=== PATIENT | female | born 1990 | race African-American/Black ===

== ENCOUNTER 2021-07-13 17:59 | Emergency (ER) | payer OTHER ==
[2021-07-13 19:13] LABS: #Eosinphils 0.3 10x3/uL (0.0-0.5); #Monocytes 0.5 10x3/uL (0.0-1.1); #Neutrophils 5.6 10x3/uL (1.5-8.4); %Basophils 0.3 % (0.0-2.0); %Eosinophils 3.5 % (0.0-6.0); %Lymphocytes 26.9 % (18.0-47.0); %Monocytes 5.8 % (0.0-10.0); %Neutrophils 63.3 % (40.0-75.0); Hemoglobin 10.9 g/dL (12.0-15.5); Mean Corpuscular HGB CONC 32.2 g/dL (32.0-36.0); Mean Corpuscular Hemoglobin 26.7 pg (27.0-33.0); Mean Corpuscular Volume 82.8 fl (81.6-98.3); Mean Platelet Volume 8.8 fl (7.4-10.4); Platelet Count 341 10x3/uL (150-450); RBC Distribution Width 18.5 % (11.5-14.5); Red Blood Cell (RBC) Count 4.08 10x6/uL (3.90-5.03); White Blood Cell (WBC) Count 8.8 10x3/uL (3.5-10.5)
[2021-07-13 19:28] LABS: Bilirubin Neg (Negative); Blood, Urine Negative (Negative); Clarity Clear (Clear); Glucose, Urine (Dipstick) Normal (Negative); Ketone, Urine Negative (Negative); Leukocyte 500 (Negative); Nitrite Negative (Negative); Protein, Urine (Dipstick) Negative (Neg-Trace); Urobilinogen Normal mg/dL (Less than 2)
[2021-07-13 19:28] LABS: ALT (SGPT) 7 U/L (8-55); AST (SGOT) 16 U/L (5-34); Albumin 3.9 g/dL (3.5-5.0); Alkaline Phosphatase 43 U/L (40-110); Anion Gap 13 mmol/L (10-20); BUN (Urea Nitrogen) 11 mg/dL (7.0-18.7); Bilirubin, Total 0.1 mg/dL (0.2-1.2); Calc. Creatinine Clearance 0 mL/min (70-130); Calcium 9.4 mg/dL (7.8-10.44); Carbon Dioxide 18 mmol/L (22-29); Chloride 105 mmol/L (98-107); Globulin 3.4 g/dL (2.4-3.5); Glucose 80 mg/dL (70-105); Potassium 3.7 mmol/L (3.5-5.1); Protein, Total 7.3 g/dL (6.0-8.3); Sodium 132 mmol/L (136-145)
[2021-07-13 19:50] LABS: Bacteria/HPF 1+ HPF (None Seen); RBC/HPF 0-3 HPF (0-3)
== END 2021-07-13 20:37 | disposition home or self-care (01) ==
LOC: CSHERS 17:59
DX: O23.42 Unspecified infection of urinary tract in pregnancy, second trimester (principal); N39.0 Urinary tract infection, site not specified; O99.332 Smoking (tobacco) complicating pregnancy, second trimester; F17.210 Nicotine dependence, cigarettes, uncomplicated; Z3A.15 15 weeks gestation of pregnancy
CPT/HCPCS: 36415; 80053; 81003; 81015; 85025; 99284

== ENCOUNTER 2021-08-11 12:23 | Outpatient (CLI) | payer OTHER | END 2021-08-11 12:24 | disposition home or self-care (01) | LOC: CSHULT 12:23 | PROVIDERS: ATTEND Family Medicine | DX: O09.892 Supervision of other high risk pregnancies, second trimester (principal); Z3A.19 19 weeks gestation of pregnancy | CPT/HCPCS: 76805 ==

== ENCOUNTER 2021-09-30 12:39 | Day surgery (SDC) | payer OTHER ==
[2021-09-30] MEDS ORDERED: hydrALAZINE 20 MG/ML VIAL SLOW IVP PRN (14:12)
[2021-09-30 14:34] VITALS: BMI 27.3
== END 2021-09-30 14:30 | disposition home or self-care (01) ==
LOC: CSHLD/OP 12:39
PROVIDERS: ATTEND Family Medicine
DX: O26.852 Spotting complicating pregnancy, second trimester (principal); O16.2 Unspecified maternal hypertension, second trimester; O09.212 Supervision of pregnancy with history of pre-term labor, second trimester; Z3A.26 26 weeks gestation of pregnancy; Z91.018 Allergy to other foods; Z79.899 Other long term (current) drug therapy
CPT/HCPCS: 87480; 87510; 87660

== ENCOUNTER 2021-11-22 19:16 | Inpatient (IN) | payer OTHER ==
[2021-11-22] MEDS ORDERED: Diphenoxylate HCl/Atropine Tablet PO PRN (20:03)
[2021-11-22] MEDS ORDERED: Carboprost 250 MCG/ML AMP IM PRN (20:03)
[2021-11-22] MEDS ORDERED: Acetaminophen 500 MG TAB PO PRN (20:03)
[2021-11-22] MEDS ORDERED: Ondansetron PF 4 MG/2 ML Vial IVP PRN (20:03)
[2021-11-22] MEDS ORDERED: Promethazine HCl 25 MG/ML VIAL IM PRN (20:03)
[2021-11-22] MEDS ORDERED: Lidocaine 1% (PF) 30 ML VIAL SC PRN (20:03)
[2021-11-22] MEDS ORDERED: Ibuprofen 800 MG TAB PO PRN (20:03)
[2021-11-22] MEDS ORDERED: Misoprostol 200 MCG TAB PR PRN (20:03)
[2021-11-22] MEDS ORDERED: hydrALAZINE 20 MG/ML VIAL SLOW IVP PRN (20:03)
[2021-11-22] MEDS ORDERED: Methylergonovine 0.2 MG/ML VIAL IM PRN (20:03)
[2021-11-22] MEDS ORDERED: HYDROcodone/Acetaminophen 5/325 mg Tablet PO PRN (20:03)
[2021-11-22] MEDS ORDERED: NS w/ Oxytocin 30 units 500 ML IV SCH (20:15)
[2021-11-22] MEDS ORDERED: Azithromycin 500 MG in Sodium Chloride 0.9% 250 ML 250 ML IVPB SCH (20:30)
[2021-11-22 20:43] LABS: Hemoglobin 11.2 g/dL (12.0-15.5); Mean Corpuscular HGB CONC 32.6 g/dL (32.0-36.0); Mean Corpuscular Hemoglobin 26.5 pg (27.0-33.0); Mean Corpuscular Volume 81.5 fl (81.6-98.3); Mean Platelet Volume 8.9 fl (7.4-10.4); Platelet Count 337 10x3/uL (150-450); Red Blood Cell (RBC) Count 4.22 10x6/uL (3.90-5.03); White Blood Cell (WBC) Count 9.2 10x3/uL (3.5-10.5)
[2021-11-22] MEDS: Betamet Acet/Betamet Na Ph 30 MG/5 ML VIAL IM SCH (20:44)
[2021-11-22] MEDS: NIFEdipine 10 MG CAP PO SCH ×3 (20:44→22:41)
[2021-11-22] MEDS: Ampicillin 2 GM in Sodium Chloride 0.9% 100 ML IVPB SCH (20:57)
[2021-11-22] MEDS: Lactated Ringer's 1,000 ML IV SCH (20:57)
[2021-11-22 21:16] VITALS: BMI 29.3
[2021-11-22 21:19] LABS: Hep B Surf Ag Non-Reactive S/CO (NonReactive); Syphilis Antibody Nonreactive (Nonreactive); Syphilis Antibody Index 0.08 S/CO (<1.00 Non-Reactive)
[2021-11-22 21:23] LABS: HBSAg Index 0.21 S/CO (0-0.99)
[2021-11-23] MEDS: Lactated Ringer's 1,000 ML IV SCH ×2 (02:23→02:24)
[2021-11-23] MEDS: NIFEdipine 10 MG CAP PO PRN ×2 (02:51→07:40)
[2021-11-23] MEDS: Ampicillin 2 GM in Sodium Chloride 0.9% 100 ML IVPB SCH ×4 (02:51→20:34)
[2021-11-23] MEDS ORDERED: Famotidine 20 MG TAB PO SCH (16:00)
[2021-11-23 20:31] LABS: SARS-CoV-2 NAA Rapid Test Not Detected (NotDetected)
[2021-11-23] MEDS: Betamet Acet/Betamet Na Ph 30 MG/5 ML VIAL IM SCH (20:34)
[2021-11-23] MEDS ORDERED: hydrOXYzine 25 MG TAB PO SCH (23:15)
[2021-11-24] MEDS: Ampicillin 2 GM in Sodium Chloride 0.9% 100 ML IVPB SCH (02:43)
== END 2021-11-24 10:00 | disposition home or self-care (01) | DRG 833 ==
LOC: CSHLD/OP 19:16 → CSHLD 21:09
PROVIDERS: ADMIT Family Medicine; ATTEND Family Medicine
DX: O60.03 Preterm labor without delivery, third trimester (principal); Z3A.34 34 weeks gestation of pregnancy; Z20.822 Contact with and (suspected) exposure to COVID-19
CPT/HCPCS: 85027; 86780; 86850; 86900; 86901; 87340; 99285; J0290; J0456; J0595; J0702; J3490; J7050; U0002

== ENCOUNTER 2021-11-25 19:11 | Day surgery (SDC) | payer OTHER ==
[2021-11-25 20:24] VITALS: BMI 29.3
== END 2021-11-25 20:57 | disposition home or self-care (01) ==
LOC: CSHLD/OP 19:11
PROVIDERS: ATTEND Family Medicine
DX: O47.03 False labor before 37 completed weeks of gestation, third trimester (principal); O13.3 Gestational [pregnancy-induced] hypertension without significant proteinuria, third trimester; Z3A.34 34 weeks gestation of pregnancy
CPT/HCPCS: 99282

== ENCOUNTER 2021-12-10 12:57 | Day surgery (SDC) | payer OTHER ==
[2021-12-10] MEDS ORDERED: hydrALAZINE 20 MG/ML VIAL SLOW IVP PRN (13:45)
== END 2021-12-10 16:35 | disposition home or self-care (01) ==
LOC: CSHLD/OP 12:57
PROVIDERS: ATTEND Family Medicine
DX: O47.03 False labor before 37 completed weeks of gestation, third trimester (principal); O10.013 Pre-existing essential hypertension complicating pregnancy, third trimester; O99.333 Smoking (tobacco) complicating pregnancy, third trimester; F17.210 Nicotine dependence, cigarettes, uncomplicated; Z79.899 Other long term (current) drug therapy; Z91.018 Allergy to other foods; Z3A.36 36 weeks gestation of pregnancy
CPT/HCPCS: 99283

== ENCOUNTER 2021-12-15 10:15 | Inpatient (IN) | payer OTHER ==
[~2021-12-15 10:15] MED LIST: Bupivacaine 0.25% HCL 30 ML VIAL ONE
[2021-12-15] MEDS ORDERED: HYDROcodone/Acetaminophen 5/325 mg Tablet PO PRN ×2 (10:23→20:53)
[2021-12-15] MEDS ORDERED: hydrALAZINE 20 MG/ML VIAL SLOW IVP PRN ×2 (10:23→20:53)
[2021-12-15] MEDS ORDERED: Carboprost 250 MCG/ML AMP IM PRN (10:23)
[2021-12-15] MEDS ORDERED: Diphenoxylate HCl/Atropine Tablet PO PRN (10:23)
[2021-12-15] MEDS ORDERED: Lidocaine 1% (PF) 30 ML VIAL SC PRN (10:23)
[2021-12-15] MEDS ORDERED: Ibuprofen 800 MG TAB PO PRN (10:23)
[2021-12-15] MEDS ORDERED: Acetaminophen 500 MG TAB PO PRN (10:23)
[2021-12-15] MEDS ORDERED: Misoprostol 200 MCG TAB PR PRN (10:23)
[2021-12-15] MEDS ORDERED: Promethazine HCl 25 MG/ML VIAL IM PRN ×3 (10:23→20:53)
[2021-12-15] MEDS ORDERED: Methylergonovine 0.2 MG/ML VIAL IM PRN (10:23)
[2021-12-15] MEDS ORDERED: Ondansetron PF 4 MG/2 ML Vial IVP PRN ×3 (10:23→20:53)
[2021-12-15] MEDS ORDERED: Penicillin G Potassium 5 MILL.UNITS in Sodium Chloride 0.9% 100 ML IVPB SCH (10:30)
[2021-12-15] MEDS ORDERED: NS w/ Oxytocin 30 units 500 ML IV SCH ×2 (10:30)
[2021-12-15] MEDS ORDERED: Lactated Ringer's 1,000 ML IV SCH (10:30)
[2021-12-15] MEDS ORDERED: Fentanyl 2 mcg/Bup 0.1% Cadd 100 ML ONE (12:56)
[2021-12-15 13:38] LABS: Hemoglobin 10.6 g/dL (12.0-15.5); Mean Corpuscular Hemoglobin 25.9 pg (27.0-33.0); Mean Corpuscular Volume 80.9 fl (81.6-98.3); Mean Platelet Volume 9.2 fl (7.4-10.4); Platelet Count 280 10x3/uL (150-450); RBC Distribution Width 15.3 % (11.5-14.5); Red Blood Cell (RBC) Count 4.09 10x6/uL (3.90-5.03)
[2021-12-15 14:16] LABS: Syphilis Antibody Nonreactive (Nonreactive); Syphilis Antibody Index 0.06 S/CO (<1.00 Non-Reactive)
[2021-12-15 14:17] LABS: Hep B Surf Ag Non-Reactive S/CO (NonReactive)
[2021-12-15] MEDS ORDERED: Moisturizing Cream (Eucerin) 113 GM JAR TOP PRN (14:31)
[2021-12-15] MEDS ORDERED: ePHEDrine Sulfate 50 MG/10 ML VIAL SLOW IVP PRN (14:31)
[2021-12-15] MEDS ORDERED: Acetaminophen 325 MG TAB PO PRN (14:31)
[2021-12-15] MEDS ORDERED: Lactated Ringer's 500 ML IV PRN (14:31)
[2021-12-15] MEDS ORDERED: Naloxone HCl 0.4 mg/ml Vial IVP PRN ×2 (14:31)
[2021-12-15] MEDS ORDERED: diphenhydrAMINE 50 MG/ML VIAL IVP PRN (14:31)
[2021-12-15] MEDS ORDERED: Fentanyl 2 mcg/Bupivacaine 0.1% Cassette 100 ML EPIDURAL SCH (14:45)
[2021-12-15] MEDS ORDERED: Communication Order-Pharmacy FS SCH (14:45)
[2021-12-15 15:00] VITALS: BMI 29.3
[2021-12-15] MEDS: Penicillin G 2.5 MILL.units 2.5 MILL.UNITS in Premix Bag 1 BAG IVPB SCH ×2 (15:40→23:48)
[2021-12-15] MEDS ORDERED: Bisacodyl 10 MG SUPP PR PRN (20:53)
[2021-12-15] MEDS ORDERED: Milk Of Magnesia 30 ML UDCUP PO PRN (20:53)
[2021-12-15] MEDS ORDERED: Boostrix 0.5 ML (Tdap) VIAL (>/=7 yrs of age) IM ONE (20:53)
[2021-12-15] MEDS ORDERED: diphenhydrAMINE 25 MG CAP PO PRN (20:53)
[2021-12-15] MEDS: Docusate 100 MG CAP PO SCH (22:57)
[2021-12-15] MEDS: Ibuprofen 800 MG TAB PO SCH (22:57)
[2021-12-16 00:18] LABS: SARS-CoV-2 NAA Rapid Test Not Detected (NotDetected)
[2021-12-16] MEDS: Ibuprofen 800 MG TAB PO SCH ×3 (05:33→21:11)
[2021-12-16] MEDS: Ferrous Sulfate 325 MG TAB PO SCH ×2 (07:20→17:16)
[2021-12-16] MEDS: Docusate 100 MG CAP PO SCH ×2 (08:54→21:10)
[2021-12-16] MEDS ORDERED: Prenatal Vitamin 1 TAB PO SCH (09:00)
[2021-12-17] MEDS: Ibuprofen 800 MG TAB PO SCH (05:22)
[2021-12-17 08:27] VITALS: TEMP 97.9
[2021-12-17 08:29] VITALS: BP 139/86
== END 2021-12-17 08:00 | disposition home or self-care (01) | DRG 807 ==
LOC: CSHLD 10:15 → CSHPP 21:50
PROVIDERS: ADMIT Family Medicine; ATTEND Family Medicine
PROC: 10E0XZZ Delivery of Products of Conception, External Approach (ICD-10-PCS; principal; 2021-12-15)
PROC: 10907ZC Drainage of Amniotic Fluid, Therapeutic from Products of Conception, Via Natural or Artificial Opening (ICD-10-PCS; 2021-12-15)
DX: O99.824 Streptococcus B carrier state complicating childbirth (principal); Z37.0 Single live birth; Z3A.37 37 weeks gestation of pregnancy; Z20.822 Contact with and (suspected) exposure to COVID-19; Z79.899 Other long term (current) drug therapy; Z91.018 Allergy to other foods
CPT/HCPCS: 36415; 51702; 85027; 86780; 86850; 86900; 86901; 87340; J2540; J2590; J3490; S0020; U0002

== ENCOUNTER 2023-08-14 18:55 | Day surgery (SDC) | payer OTHER ==
[2023-08-14 19:11] VITALS: BMI 29.7
== END 2023-08-15 00:20 | disposition home or self-care (01) ==
LOC: CSHLD/OP 18:55
PROVIDERS: ATTEND Family Medicine
DX: O47.03 False labor before 37 completed weeks of gestation, third trimester (principal); O23.593 Infection of other part of genital tract in pregnancy, third trimester; B96.89 Other specified bacterial agents as the cause of diseases classified elsewhere; O32.1XX0 Maternal care for breech presentation, not applicable or unspecified; O99.333 Smoking (tobacco) complicating pregnancy, third trimester; F17.210 Nicotine dependence, cigarettes, uncomplicated; Z88.5 Allergy status to narcotic agent; Z91.018 Allergy to other foods; Z3A.35 35 weeks gestation of pregnancy; Z79.899 Other long term (current) drug therapy
CPT/HCPCS: 99283

== ENCOUNTER 2023-08-16 08:20 | Day surgery (SDC) | payer OTHER ==
[2023-08-16] MEDS ORDERED: hydrALAZINE 20 MG/ML VIAL SLOW IVP PRN (09:17)
[2023-08-16 09:28] VITALS: BMI 28.8
[2023-08-16 09:38] LABS: Fetal Membranes Rupture No Membranes Rupture (No Rupture)
== END 2023-08-16 10:40 | disposition home or self-care (01) ==
LOC: CSHLD/OP 08:20
PROVIDERS: ATTEND Family Medicine
DX: O47.03 False labor before 37 completed weeks of gestation, third trimester (principal); O36.5930 Maternal care for other known or suspected poor fetal growth, third trimester, not applicable or unspecified; O23.593 Infection of other part of genital tract in pregnancy, third trimester; B96.89 Other specified bacterial agents as the cause of diseases classified elsewhere; O09.213 Supervision of pregnancy with history of pre-term labor, third trimester; O99.333 Smoking (tobacco) complicating pregnancy, third trimester; O23.43 Unspecified infection of urinary tract in pregnancy, third trimester; F17.210 Nicotine dependence, cigarettes, uncomplicated; Z91.018 Allergy to other foods; Z88.5 Allergy status to narcotic agent; Z3A.35 35 weeks gestation of pregnancy
CPT/HCPCS: 76819; 84112

== ENCOUNTER 2023-08-17 15:14 | Observation (INO) | payer OTHER ==
[2023-08-17] MEDS ORDERED: Ondansetron PF 4 MG/2 ML Vial IVP PRN (15:25)
[2023-08-17] MEDS ORDERED: Docusate 100 MG CAP PO PRN (15:25)
[2023-08-17] MEDS ORDERED: Acetaminophen 500 MG TAB PO PRN (15:25)
[2023-08-17] MEDS ORDERED: hydrALAZINE 20 MG/ML VIAL SLOW IVP PRN (15:25)
[2023-08-17] MEDS ORDERED: Promethazine HCl 25 MG/ML VIAL IM PRN (15:25)
[2023-08-17] MEDS ORDERED: Oxytocin 30 units/NS 500 ML 500 ML IV SCH (15:30)
[2023-08-17 15:46] VITALS: BMI 29.2
[2023-08-17 16:57] LABS: Hematocrit 31.8 % (34.9-44.5); Hemoglobin 10.3 g/dL (12.0-15.5); Mean Corpuscular HGB CONC 32.4 g/dL (32.0-36.0); Mean Corpuscular Hemoglobin 28.4 pg (27.0-33.0); Mean Corpuscular Volume 87.6 fl (81.6-98.3); Mean Platelet Volume 9.1 fl (7.4-10.4); Platelet Count 295 10x3/uL (150-450); RBC Distribution Width 13.5 % (11.5-14.5); Red Blood Cell (RBC) Count 3.63 10x6/uL (3.90-5.03); White Blood Cell (WBC) Count 7.3 10x3/uL (3.5-10.5)
[2023-08-17] MEDS: Lactated Ringer's 1,000 ML IV SCH (17:01)
[2023-08-17 17:25] LABS: Syphilis Antibody Nonreactive (Nonreactive); Syphilis Antibody Index 0.06 S/CO (<1.00 Non-Reactive)
[2023-08-17 17:27] LABS: HBsAg Index 0.24 S/CO (0-0.99); Hep B Surf Ag - L&D Non-Reactive S/CO (NonReactive)
[2023-08-17] MEDS: Famotidine 20 MG TAB PO SCH (19:14)
[2023-08-18] MEDS ORDERED: Famotidine 20 MG TAB PO SCH (09:00)
== END 2023-08-17 21:05 | disposition left against medical advice (07) ==
LOC: CSHLD/OP 15:14 → INTOOBSV 16:26 → CSHLD 16:26
PROVIDERS: ADMIT Family Medicine; ATTEND Family Medicine
DX: O47.03 False labor before 37 completed weeks of gestation, third trimester (principal); Z3A.35 35 weeks gestation of pregnancy; Z88.5 Allergy status to narcotic agent; Z91.018 Allergy to other foods; Z79.899 Other long term (current) drug therapy
CPT/HCPCS: 36415; 85027; 86780; 86850; 86900; 86901; 87340; 99283; G0378; J7120

== ENCOUNTER 2023-08-18 10:37 | Day surgery (SDC) | payer OTHER ==
[2023-08-18 10:54] VITALS: BMI 29.2
[2023-08-18] MEDS ORDERED: hydrALAZINE 20 MG/ML VIAL SLOW IVP PRN (11:04)
== END 2023-08-18 13:25 | disposition home or self-care (01) ==
LOC: CSHLD/OP 10:37
PROVIDERS: ATTEND Family Medicine
DX: O41.03X0 Oligohydramnios, third trimester, not applicable or unspecified (principal); O47.03 False labor before 37 completed weeks of gestation, third trimester; O36.5930 Maternal care for other known or suspected poor fetal growth, third trimester, not applicable or unspecified; O32.1XX0 Maternal care for breech presentation, not applicable or unspecified; O99.333 Smoking (tobacco) complicating pregnancy, third trimester; F17.200 Nicotine dependence, unspecified, uncomplicated; O09.43 Supervision of pregnancy with grand multiparity, third trimester; O09.33 Supervision of pregnancy with insufficient antenatal care, third trimester; O09.213 Supervision of pregnancy with history of pre-term labor, third trimester; Z3A.35 35 weeks gestation of pregnancy; Z88.5 Allergy status to narcotic agent; Z91.018 Allergy to other foods
CPT/HCPCS: 76819; 99282